=== PATIENT | male | born 1965 | race Two or more races ===

== ENCOUNTER 2022-12-30 06:20 | Emergency (ER) | payer OTHER, MEDICARE ==
[~2022-12-30] VITALS: Ht 188 cm; Wt 118.0 kg
[2022-12-30 07:17] LABS: Urine Bacteria NONE SEEN /hpf (None Seen); Urine Blood Negative /uL (Negative); Urine Specific Gravity 1.016 (1.001-1.035); Urine WBC 492 /hpf (0 - 3)
[2022-12-30 08:33] VITALS: BP 151/95
[2022-12-30] MEDS ORDERED: LEVO750T8 PO (10:51)
== END 2022-12-30 10:52 | disposition home or self-care (01) ==
LOC: ER 06:20
DX: T83.098A Other mechanical complication of other urinary catheter, initial encounter (principal); R33.9 Retention of urine, unspecified; N39.0 Urinary tract infection, site not specified; E11.9 Type 2 diabetes mellitus without complications; E78.5 Hyperlipidemia, unspecified; I10 Essential (primary) hypertension
CPT/HCPCS: 51702; 81001

== ENCOUNTER 2024-11-22 07:20 | Day surgery (SDC) | payer MEDICARE, OTHER ==
[~2024-11-22] VITALS: Ht 188 cm; Wt 93.0 kg
[~2024-11-22 07:20] MED LIST: APIX2.5T PO; ASPI-498 PO; FINA5TAB4 PO; LISI20TA56 PO; METF-370 PO; METO25TA36 PO; MULT-930 PO; OXYC-963 PO; TAMS0.4C39 PO; TIZA4CAP PO
[2024-11-22] MEDS ORDERED: KETOROLAC TROMETH 30 MG/ML 1ML VIAL IV ONE (07:21)
[2024-11-22] MEDS ORDERED: ONDANSETRON HCL 4 MG/2 ML VIAL IV ONE ×2 (07:21→09:15)
[2024-11-22] MEDS ORDERED: LIDOCAINE 1% HCL (LOCAL ANESTH.) INJ 20ML MDV ONE (07:35)
[2024-11-22] MEDS ORDERED: BUPIVACAINE 0.25% INJ 50ML VIAL ONE (07:35)
[2024-11-22 08:26] LABS: Basophils # (auto) 0.1 10 ^3/uL (0-0.2); Basophils % (auto) 1.3 % (0.0-2.0); Eosinophils # (auto) 0.3 10 ^3/uL (0-0.8); Eosinophils % (auto) 4.1 % (0.0-7.0); Hematocrit 44.5 % (41.0-53.0); Lymphocytes # (auto) 2.2 10 ^3/uL (0.4-5.4); Mean Corpuscular Hemoglobin 30.6 pg (28.0-32.0); Mean Corpuscular Hgb Conc. 33.7 g/dL (32.0-36.0); Mean Corpuscular Volume 90.9 fL (80.0-100.0); Monocytes # (auto) 0.8 10 ^3/uL (0-1.3); Monocytes % (auto) 9.5 % (0.0-12.0); Neutrophils # (auto) 4.7 10 ^3/uL (1.6-8.6); Neutrophils % (auto) 58.1 % (37.0-80.0); Nucleated Red Blood Cells % 0.1 %; Platelet Count (auto) 169 10^3/uL (140-450); Red Blood Cells 4.89 10^6/uL (4.5-5.90); Red Cell Distribution Width 15.7 % (11.8-14.3); White Blood Cell 8.1 10^3/uL (4.4-10.8)
[2024-11-22 08:36] LABS: Alanine Aminotransferase 22 U/L (7-40); Albumin 3.9 g/dL (3.2-4.8); Alkaline Phosphatase 67 U/L (46-116); Anion Gap 8 (5-15); Aspartate Aminotransferase 14 U/L (13-40); Bilirubin, Total 0.5 mg/dL (0.2-1.0); Calcium 9.9 mg/dL (8.7-10.4); Carbon Dioxide 24 mmol/L (20-31); Glucose 91 mg/dL (74-106); Potassium 3.7 mmol/L (3.5-5.1); Sodium 140 mmol/L (136-145); Total Protein 6.4 g/dL (5.7-8.2)
[2024-11-22 08:39] LABS: Blood Urea Nitrogen 9 mg/dL (9-23); Chloride 108 mmol/L (98-107)
[2024-11-22 08:43] LABS: INR 1.16 (0.9-1.15); Partial Thromboplastin Time 26.8 SEC (24.5-34.5); Prothrombin Time 12.1 sec (9.3-11.8)
[2024-11-22] MEDS ORDERED: PROPOFOL 10 MG/ML 20 ML IV ONE (08:56)
[2024-11-22] MEDS ORDERED: DexAMETHasone SOD PHOS 10MG/1ML VIAL INJ ONE (08:56)
[2024-11-22] MEDS ORDERED: PHENYLEPHRINE HCL 10 MG/ML VL ONE (08:56)
[2024-11-22] MEDS ORDERED: LIDOCAINE 2% (LOCAL ANESTH.) PF 5ml SDV ONE (08:56)
[2024-11-22] MEDS ORDERED: ePHEDrine SULFATE 50 MG/ML AMP ONE (08:56)
[2024-11-22] MEDS ORDERED: GLYCOPYRROLATE 0.2 MG/ML 1ML VIAL ONE (08:56)
[2024-11-22] MEDS ORDERED: HYDROmorphone HCL 2 MG/ML VL/or syr ONE (08:56)
[2024-11-22] MEDS ORDERED: KETAMINE 50mg/ML 1ml syringe ONE (08:56)
[2024-11-22] MEDS ORDERED: MIDAZOLAM HCL 2MG/2ML 2ml VIAL (1mg/ml) ONE (08:56)
[2024-11-22] MEDS ORDERED: fentaNYL CITRATE 100 MCG/2 ML VL ONE (08:56)
[2024-11-22] MEDS ORDERED: ACCU-CHEK COMFORT CURVE STRIP VI ONE (09:15)
[2024-11-22] MEDS ORDERED: HYDROmorphone HCL 2 MG/ML VL/or syr IV PRN (09:15)
[2024-11-22] MEDS: ceFAZolin 2 GM/D5W100ml 100 ML IV ONE (10:30)
[2024-11-22] MEDS ORDERED: ETOMIDATE (2MG/ML) 20ML VIAL IV ONE (10:33)
[2024-11-22 11:37] VITALS: PULSE 72; RESP 17; O2SAT 100
[2024-11-22] MEDS: HYDROmorphone HCL 2 MG/ML VL/or syr ONE (12:10)
--- NOTE | 2024-11-22 12:30 | DVHOP2 ---
Operative Report - 2 Report Details Date: 11/22/24 Preop Diagnosis: Right 1st 2nd 3rd and 5th toe dry gangrene, left 2nd and 3rd toe gangrene Postop Diagnosis: toe gangrene Surgeon: Frankie Tellez MD Anesthesiologist: General endotracheal tube Anesthesia: General Consent: The patient was informed of the risks and benefits of the procedure. These include but are not limited to complications of anesthesia, postoperative infection, incomplete relief of symptoms, recurrence of symptoms, damage to blood vessels, nerves and tendons, deep venous thrombosis, pulmonary embolism and possible need for repeat surgery in the future. Estimated Blood Loss: 25 mL Indications for Surgery: See preop diagnosis Name of Procedure Performed Left 2nd and 3rd toe amputation right 1st 2nd 3rd and 4th toe amputation. First metatarsal head amputation right side Procedure Details Procedure Details: Patient was identified in the preop holding area at this time who was consented and preop by myself he was brought back to the operating room placed the operating table in supine position after adequate induction of anesthesia antibi otics and time-out. The right and left foot were prepped and draped in normal surgical fashion. The right foot was addressed 1st the 1st 2nd and 3rd toe were amputated EN bloc down to healthy bleeding tissue which was controlled with Bovie cauterization all necrotic tissue was removed the 1st metatarsal head was then amputated with bone saw. The wound was then irrigated out and was closed with a deep layer of 3-0 Vicryl sutures followed by skin closure with interrupted transverse Prolene 2-0 suture interrupted. The 5th toe at the tip was dry gangrene this was amputated down to the metatarsal phalanges joint. The tissue was healthy and bleeding was controlled with Bovie cauterization. Skin was closed with 2-0 Prolene sutures interrupted. Attention was then placed to the left foot where the 2nd and 3rd toe were amputated at the metatarsophalangeal joints separately. Wounds were irrigated out and healthy bleeding was noted it was controlled with the Bovie cauterization. This skin was then closed with 2-0 Prolene sutures interruptedly. Both legs were then addressed with Kerlix Tay wraps patient tolerated procedure well was taken to PACU in stable condition dictation complete. Specimen: Right 1st 2nd 3rd toe and 1st metatarsal head Right 5th toe Left 2nd toe Left 3rd toe Disposition Home FRANKIE TELLEZ Jr., MD Nov 22, 2024 12:30
[2024-11-22 12:52] VITALS: BP 135/63; PULSE 73; RESP 12; O2SAT 95
[2024-11-22] MEDS: OXYCODONE W/ ACETAMINOPHEN 5/325MG TABLET PO ONE (12:55)
== END 2024-11-22 13:27 | disposition home or self-care (01) ==
LOC: SUR 07:20
PROVIDERS: ATTEND Surgery Vascular Surgery
DX: E11.52 Type 2 diabetes mellitus with diabetic peripheral angiopathy with gangrene (principal); I96 Gangrene, not elsewhere classified; I10 Essential (primary) hypertension; E78.00 Pure hypercholesterolemia, unspecified; Z79.899 Other long term (current) drug therapy; Z79.84 Long term (current) use of oral hypoglycemic drugs; E11.51 Type 2 diabetes mellitus with diabetic peripheral angiopathy without gangrene; I25.10 Atherosclerotic heart disease of native coronary artery without angina pectoris; I25.2 Old myocardial infarction; Z86.718 Personal history of other venous thrombosis and embolism; Z79.01 Long term (current) use of anticoagulants; Z79.82 Long term (current) use of aspirin
CPT/HCPCS: 28810; 28820; 36415; 80053; 82962; 85025; 85610; 85730; J1100; J1171; J1885; J2003; J2250; J2371; J2405; J2704; J3010; J3490